=== PATIENT | female | born 1965 | race Two or more races ===

== ENCOUNTER → 2024-04-29 07:17 | Outpatient (CLI) | payer OTHER | END | disposition home or self-care (01) | LOC: LAB 07:17 | PROVIDERS: ATTEND Orthopaedic Surgery | DX: I10 Essential (primary) hypertension (principal); Z76.89 Persons encountering health services in other specified circumstances ==

== ENCOUNTER 2024-05-15 13:07 | Inpatient (IN) | payer OTHER ==
[~2024-05-15] VITALS: Ht 167.6 cm; Wt 88.5 kg
[2024-05-15 13:46] LABS: URINE APPEARANCE Clear; URINE BILIRRUBIN Negative (NEGATIVE); URINE BLOOD Negative; URINE COLOR Yellow; URINE GLUCOSE Negative (NEGATIVE); URINE KETONE Negative (NEGATIVE); URINE LEUKOCYTE Negative; URINE NITRATE Negative; URINE PROTEIN Negative (NEGATIVE); URINE UROBILINOGEN 0.2 E.U./dl
[2024-05-15 13:47] LABS: URINE BACTERIA 50.3 uL (0.0-1933); URINE EPITHELIAL CELLS 6.6 uL (0.0-38.8); URINE RBC 21.3 uL (0.0-20.8); URINE WBC 17.4 uL (0.0-23.2)
[2024-05-15] MEDS ORDERED: CALCIUM500 M1 PO (14:07)
[2024-05-15] MEDS ORDERED: ORTHO DF 3,7751 EACH PO (14:08)
[2024-05-15] MEDS ORDERED: PROMETRIUM200 MG PO (14:08)
[2024-05-15] MEDS ORDERED: MAGNESIUM200 MG PO (14:08)
[2024-05-21] MEDS ORDERED: EPINEPHRINE HCL/PF 1 MG/ML AMPUL ONE (10:21)
[2024-05-21] MEDS ORDERED: KETOROLAC TROMETHAMINE 60 MG VIAL IM ONE (10:22)
[2024-05-21] MEDS ORDERED: POLYMYXIN B SULFATE 500,000 U VIAL ONE (10:22)
[2024-05-21] MEDS ORDERED: CEFAZOLIN SODIUM 1,000 MG VIAL ONE ×2 (10:22→17:49)
[2024-05-21] MEDS ORDERED: BUPIVACAINE HCL/MPF 0.5% 30ML VIAL ONE (10:22)
[2024-05-21] MEDS ORDERED: VANCOMYCIN HCL 1,000 MG VIAL ONE (10:23)
[2024-05-21] MEDS ORDERED: TRANEXAMIC ACID 100MG/1ML (1000MG) AMPUL IV ONE (10:24)
[2024-05-21] MEDS ORDERED: LIDOCAINE HCL 1%/EPINEPHRINE 20ML VIAL IJ ONE (10:30)
[2024-05-21] MEDS ORDERED: TRAMADOL HCL 50 MG TABLET PO PRN (15:45)
[2024-05-21] MEDS ORDERED: ONDANSETRON HCL 2 MG/ML VIAL IV PRN (15:45)
[2024-05-21] MEDS ORDERED: SODIUM CHLORIDE 0.45 % 1,000 ML IV SCH (15:45)
[2024-05-21] MEDS ORDERED: MEPERIDINE HCL/PF 50 MG/ML VIAL IM PRN (15:45)
[2024-05-21] MEDS ORDERED: PROMETHAZINE HCL 50 MG/ML AMPUL IM PRN (15:45)
[2024-05-21] MEDS ORDERED: ONDANSETRON 4 MG TAB.RAPDIS PO PRN (15:45)
[2024-05-21] MEDS ORDERED: ACETAMINOPHEN 325 MG TABLET PO SCH (17:00)
[2024-05-21] MEDS ORDERED: CELECOXIB 200 MG CAPSULE PO SCH (17:00)
[2024-05-21] MEDS ORDERED: CEFAZOLIN SODIUM 1,000 MG VIAL IV SCH (17:00)
[2024-05-21] MEDS ORDERED: PANTOPRAZOLE SODIUM 40 MG TABLET.DR PO SCH (17:00)
[2024-05-21] MEDS ORDERED: KETOROLAC TROMETHAMINE 10 MG TABLET PO SCH (21:00)
[2024-05-22 07:47] LABS: HEMATOCRIT 35.3 % (36.0-45.00); MEAN CELL VOLUME 90.5 fL (80.00-100.00); MEAN CORPUSCULAR HEMOGLOBIN 30.7 pg (27.00-32.0); MEAN CORPUSCULAR HGB CONC 33.9 g/dl (32.0-36.0); PLATELET COUNT 194 K/uL (150-450)
[2024-05-22] MEDS ORDERED: RIVAROXABAN 10 MG TAB PO SCH (09:00)
[2024-05-23 08:41] LABS: HEMATOCRIT 31.8 % (36.0-45.00); HEMOGLOBIN 10.9 g/dL (12.0-15.00); MEAN CORPUSCULAR HGB CONC 34.4 g/dl (32.0-36.0); PLATELET COUNT 183 K/uL (150-450); RED BLOOD COUNT 3.53 M/uL (4.00-6.00); RED CELL DISTRIBUTION WIDTH 14.3 % (11.5-14.5)
[2024-05-23] MEDS ORDERED: SENNA/DOCUSATE SODIUM 1 TAB TABLET PO SCH (09:00)
[2024-05-23] MEDS ORDERED: SOD FERRIC GLUC COMPLX/SUCROSE 62.5 MG in 0.9 % SODIUM CHLORIDE 50 ML IV SCH (12:00)
== END 2024-05-23 19:07 | DRG 470 ==
LOC: O/R 05-21 08:32 → SURH 05-21 08:32
PROVIDERS: ADMIT Orthopaedic Surgery; ATTEND Orthopaedic Surgery
PROC: 0SR90JZ Replacement of Right Hip Joint with Synthetic Substitute, Open Approach (ICD-10-PCS; principal; 2024-05-21 09:30)
DX: M16.11 Unilateral primary osteoarthritis, right hip (principal)

== ENCOUNTER 2024-06-07 12:36 | Outpatient (CLI) | payer OTHER ==
[~2024-06-07 12:36] MED LIST: CALCIUM500 M1 PO; MAGNESIUM200 MG PO; ORTHO DF 3,7751 EACH PO; PROMETRIUM200 MG PO
== END 2024-06-07 12:49 | disposition home or self-care (01) ==
LOC: RAD 12:36
PROVIDERS: ATTEND Orthopaedic Surgery
DX: Z96.641 Presence of right artificial hip joint (principal)

== ENCOUNTER → 2024-09-04 | Outpatient (CLI) | payer OTHER | END | disposition home or self-care (01) | LOC: RAD 13:28 | PROVIDERS: ATTEND Orthopaedic Surgery | DX: Z96.641 Presence of right artificial hip joint (principal) ==

== ENCOUNTER 2025-02-03 12:17 | Outpatient (CLI) | payer OTHER | END 2025-02-03 12:19 | disposition home or self-care (01) | LOC: RAD 12:17 | PROVIDERS: ATTEND Orthopaedic Surgery | DX: Z96.641 Presence of right artificial hip joint (principal) ==